=== PATIENT | male | born 1930 | race Caucasian/White ===

== ENCOUNTER 2016-06-24 01:34 | Emergency (ER) | payer MEDICARE, OTHER | END 2016-06-24 04:10 | disposition home or self-care (01) | DX: I48.2 Chronic atrial fibrillation (principal); I48.92 Unspecified atrial flutter; I49.3 Ventricular premature depolarization; Z79.01 Long term (current) use of anticoagulants; Z95.810 Presence of automatic (implantable) cardiac defibrillator; I10 Essential (primary) hypertension; J44.9 Chronic obstructive pulmonary disease, unspecified; Z86.73 Personal history of transient ischemic attack (TIA), and cerebral infarction without residual deficits; Z87.891 Personal history of nicotine dependence | CPT/HCPCS: 36415; 80048; 84443; 84484; 85025; 93005; 93010; 99283; 99285; G0480 ==

== ENCOUNTER 2016-06-27 13:00 | Outpatient (CLI) | payer MEDICARE, OTHER | END 2016-06-27 13:01 | disposition home or self-care (01) | DX: I35.0 Nonrheumatic aortic (valve) stenosis (principal); Z95.2 Presence of prosthetic heart valve; I48.2 Chronic atrial fibrillation; I34.0 Nonrheumatic mitral (valve) insufficiency; I07.1 Rheumatic tricuspid insufficiency ==

== ENCOUNTER 2016-10-08 11:17 | Outpatient (CLI) | payer MEDICARE, OTHER ==
[2016-10-08 13:07] LABS: BASOPHILS % (AUTO) 0.4 %; EOSINOPHILS # (AUTO) 0.1 10^3/uL (0.0-0.7); EOSINOPHILS % (AUTO) 2.1 %; HCT - HEMATOCRIT 33.4 % (42.0-52.0); HGB - HEMOGLOBIN 10.7 g/dL (14.0-18.0); LYMPHOCYTES # (AUTO) 0.6 10^3/uL (1.5-3.5); LYMPHOCYTES % (AUTO) 10.7 %; MEAN CORPUSCULAR HEMOGLOBIN 23.4 pg (27.0-31.0); MEAN CORPUSCULAR VOLUME 73.2 fL (80.0-94.0); MEAN PLATELET VOLUME 8.5 fL (7.4-11.4); MONOCYTES # (AUTO) 0.9 10^3/uL (0.0-1.0); MONOCYTES % (AUTO) 15.3 %; NEUTROPHILS # (AUTO) 4.2 10^3/uL (1.5-6.6); NEUTROPHILS % (AUTO) 71.5 %; NUCLEATED RED BLOOD CELLS AUTO 0.2 /100WBC; RED BLOOD COUNT 4.56 10^6/uL (4.70-6.10); RED CELL DISTRIBUTION WIDTH 20.1 % (12.0-15.0); UNCORRECTED WHITE BLOOD COUNT 5.9 x10^3/uL; WHITE BLOOD COUNT 5.9 x10^3/uL (4.8-10.8)
[2016-10-08 13:19] LABS: ALBUMIN/GLOBULIN RATIO 1.2 (1.0-2.2); BILIRUBIN,TOTAL 0.5 mg/dL (0.2-1.0); CALCIUM 9.7 mg/dL (8.5-10.3); CREATININE 1.3 mg/dL (0.6-1.2); POTASSIUM 3.8 mmol/L (3.5-5.0); TOTAL PROTEIN 6.6 g/dL (6.7-8.2)
== END 2016-10-08 11:18 | disposition home or self-care (01) ==
LOC: LAB 11:17
PROVIDERS: ATTEND Internal Medicine
DX: J44.1 Chronic obstructive pulmonary disease with (acute) exacerbation (principal); I50.9 Heart failure, unspecified
CPT/HCPCS: 36415; 80053; 83880; 85025

== ENCOUNTER 2016-10-11 14:06 | Outpatient (CLI) | payer MEDICARE, OTHER ==
[2016-10-11] MEDS ORDERED: ALBUTEROL NEB 2.5 MG/3 ML INH ONE (14:31)
== END 2016-10-11 14:07 | disposition home or self-care (01) ==
LOC: RT 14:06
PROVIDERS: ATTEND Internal Medicine
DX: J44.1 Chronic obstructive pulmonary disease with (acute) exacerbation (principal)
CPT/HCPCS: 94060; J7613

== ENCOUNTER 2016-10-16 13:27 | Emergency (ER) | payer MEDICARE, OTHER ==
--- NOTE | 2016-10-16 13:37 | ED Physician Documentation ---
PD HPI DYSPNEA - Stated complaint Stated Complaint: SOA - History obtained from History obtained from: Patient, Family () - History of Present Illness Timing - onset: How many months ago (2 months of dyspnea, worsening) Timing - onset during: Light activity (he is still able to walk around house, to bathroom, etc but gets winded with longer duration walking. No chest pain.) Timing - details: Gradual onset, Still present, Waxing and waning Inciting event(s): No: URI, Immobilization/travel Improved by: Rest, Sitting up Worsened by: Exertion, Laying flat, Coughing Associated symptoms: Cough. No: Fever, Wheezing, Chest pain / discomfort, Palpitations, Bilateral edema Similar symptoms before: No diagnosis Recently seen: Clinic (had labs done through Bed Placement Coordinator 10/08 which were okay. Seen in PMD yesterday and was ordered for CXR and labs tomorrow, but felt worse today. Is scheduling CT abd in [place] for next week, as he has had bloating and easy satiety. says Dr. Gregg wanted that to be in [place].) Review of Systems Constitutional: denies: Fever, Chills Nose: reports: Congestion. denies: Rhinorrhea / runny nose Throat: denies: Sore throat Cardiac: denies: Chest pain / pressure, Palpitations, Pedal edema, Calf pain Respiratory: reports: Dyspnea, Cough GI: reports: Vomiting. denies: Abdominal Pain, Nausea, Constipation, Diarrhea, Bloody / black stool : denies: Dysuria, Frequency Skin: denies: Rash, Lesions Neurologic: reports: Generalized weakness. denies: Focal weakness, Numbness, Altered mental status, Headache Psychiatric: denies: Insomnia Endocrine: reports: Easy bruising / bleeding. denies: Polyuria, Weight loss, Swollen lymph nodes Immunocompromised: denies: Immunocompromised PD PAST MEDICAL HISTORY - Past Medical History Cardiovascular: Hypertension, Atrial fibrillation, Valve disorder Respiratory: COPD, Shortness of breath Neuro: CVA GI: Other Psych: Anxiety Musculoskeletal: Osteoporosis - Past Surgical History General: Appendectomy, Bowel surgery Cardiovascular: Pacemaker HEENT: Tonsil/Adenoidectomy Derm: Skin cancer surgery - Present Medications Home Medications: Ambulatory Orders Medication Instructions Recorded Confirmed Apixaban [Eliquis] 5 mg PO BID 06/24/16 10/16/16 Carvedilol 6.25 mg ORAL BID 06/24/16 10/16/16 Colchicine [Colcrys] 0.6 mg ORAL DAILY 06/24/16 10/16/16 Diazepam 2 mg PO BID 06/24/16 10/16/16 Doxazosin [Cardura] 4 mg ORAL BID 06/24/16 10/16/16 Fluticasone [Flonase] 1 spray SATNAM BID 06/24/16 10/16/16 Fluticasone/Salmeterol 250/50 1 puffs INH BID 06/24/16 10/16/16 [Advair 250 Mcg/50 Mcg] Furosemide 40 mg PO DAILY 06/24/16 10/16/16 Omeprazole 20 mg ORAL DAILY 06/24/16 10/16/16 Pramipexole [Mirapex] 1 - 4 tab ORAL DAILY 06/24/16 10/16/16 Simvastatin 20 mg ORAL DAILY 06/24/16 10/16/16 Solifenacin Succinate [Vesicare] 5 mg ORAL DAILY 06/24/16 10/16/16 Vit A/Vit C/Vit E/Zinc/Copper 2 tab ORAL BID 06/24/16 10/16/16 [Preservision Areds Softgel] Zolpidem [Ambien] 5 mg PO HS 06/24/16 10/16/16 buPROPion [Wellbutrin Sr] 150 mg ORAL BID 06/24/16 10/16/16 Albuterol Sulfate [Proair Hfa 2 puffs IH QID #1 hfa.aer.ad 10/16/16 Inhaler] Dexamethasone [Decadron] 4 mg PO DAILY #5 tablet 10/16/16 Testosterone Cypionate 200 mg IM 10/16/16 - Allergies Allergies/Adverse Reactions: Allergies Allergy/AdvReac Type Severity Reaction Status Date / Time Iodinated Contrast- Oral and Allergy Mild Unknown Verified 06/24/16 01:47 IV Dye [Iodinated Contrast Media - IV Dye] Penicillins Allergy Mild Rash Verified 06/24/16 01:47 - Living Situation Living Situation: reports: With spouse/s.o. Living Arrangement: reports: At home - Social History Does the pt smoke?: No Smoking Status: Former smoker Does the pt drink ETOH?: Yes Does the pt have substance abuse?: No - Family History Family history: reports: Non contributory - Immunizations Immunizations are current?: No - POLST Patient has POLST: Yes PD ED PE NORMAL - Vitals Vital signs reviewed: Yes - General General: Alert and oriented X 3, Well developed/nourished, Other (somewhat frail looking. Mild short term recall deficit.) - HEENT HEENT: Moist mucous membranes, Pharynx benign - Neck Neck: Supple, no meningeal sign, No adenopathy - Cardiac Cardiac: RRR, No rub, Other (1/6 murmur left sternum without obvious radiation) - Respiratory Respiratory: No: Clear bilaterally (no fine crackles. Has some coarseness perihilar right. Also diffuse mild swheezing with deep brreath) - Abdomen Abdomen: Normal bowel sounds, Soft, Non tender, No organomegaly, Other (mild fullness without firmness; decreased bowel sounds.) - Back Back: No CVA TTP - Derm Derm: Normal color, Warm and dry - Extremities Extremities: No tenderness to palpate, Normal ROM s pain, No edema, No calf tenderness / cord - Neuro Neuro: Alert and oriented X 3, No motor deficit, Normal speech - Psych Psych: Normal mood, Normal affect Results - Vitals Vitals: Vital Signs - 24 hr 10/16/16 10/16/16 10/16/16 13:34 14:37 16:04 Temperature 36.8 C 36.6 C Heart Rate 64 53 L 53 L Respiratory 22 23 19 Rate Blood Pressure 92/65 92/42 L O2 Saturation 94 95 Oxygen O2 Source Room air - EKG (time done) 13:44 Rate: Rate (enter#) (49), Rodrigue Rhythm: Atrial flutter QRS: Normal Ischemia: No: ST elevation c/w ischemia, ST depression - Labs Labs: Laboratory Tests 10/16/16 10/16/16 10/16/16 13:50 13:50 13:50 WBC 9.0 RBC 4.63 L Hgb 10.8 L Hct 33.8 L MCV 72.9 L MCH 23.3 L MCHC 32.0 RDW 20.0 H Plt Count 166 MPV 8.3 Neut # 7.1 H Lymph # 0.5 L Powell # 1.3 H Eos # 0.1 Baso # 0.0 Absolute Nucleated RBC 0.01 Nucleated RBCs 0.1 Sodium 139 Potassium 3.4 L Chloride 99 L Carbon Dioxide 32 Anion Gap 8.0 BUN 46 H Creatinine 1.4 H Estimated GFR (MDRD) 48 L Glucose 139 H Calcium 9.3 Magnesium 2.0 Total Bilirubin 0.6 AST 26 ALT 20 Alkaline Phosphatase 35 L Troponin I 0.04 B-Natriuretic Peptide Total Protein 6.8 Albumin 4.0 Globulin 2.8 Albumin/Globulin Ratio 1.4 Lipase 29 10/16/16 13:50 WBC RBC Hgb Hct MCV MCH MCHC RDW Plt Count MPV Neut # Lymph # Powell # Eos # Baso # Absolute Nucleated RBC Nucleated RBCs Sodium Potassium Chloride Carbon Dioxide Anion Gap BUN Creatinine Estimated GFR (MDRD) Glucose Calcium Magnesium Total Bilirubin AST ALT Alkaline Phosphatase Troponin I B-Natriuretic Peptide 237 H Total Protein Albumin Globulin Albumin/Globulin Ratio Lipase - Rads (name of study) chest Radiology: Prelim report reviewed (some old scarring c/w chronic lung disease. mild interstitial fullness and bibasilar infiltrates. ) PD MEDICAL DECISION MAKING - ED course Complexity details: reviewed results, considered differential (has had dyspnea for couple of months, worse the past 2 weeks. Had some labs done on which were okay. Seen by PMD yesterday and was to get CXR and some repeat blood tests tomorrow. Feeling more dyspnea today. Also has had some abd bloating and fullness, and is scheduling for abd CT in [place] next week (pt and not sure why but Dr. Gregg wanted the CT from [place]). Did labs to exclude signficiant heart process. He did feel some improvement in breathing with neb treatment, so can treat as potential reactive airways with short course steroid and MDI. ), d/w patient, d/w family Departure - Departure Disposition: Home, Self Care Clinical Impression: Dyspnea Qualifiers: Dyspnea type: dyspnea on exertion Qualified Code(s): R06.09 - Other forms of dyspnea Atrial fibrillation Qualifiers: Atrial fibrillation type: chronic Qualified Code(s): I48.2 - Chronic atrial fibrillation Condition: Stable Record reviewed to determine appropriate education?: Yes Instructions: ED Dyspnea Shortness of Breath Follow-Up: Beau Gregg MD [Primary Care Provider] - Prescriptions: Dexamethasone [Decadron] 4 mg PO DAILY #5 tablet Albuterol Sulfate [Proair Hfa Inhaler] 2 puffs IH QID #1 hfa.aer.ad Comments: Follow up with your PMD. Get the CT scan of abdomen in [place] as planned. For now, for the dyspnea, can try 5 days of decadron steroid and an Albuterol inhaler 2 puffs 4 times daily for 1-2 weeks. See if breathing better with that. Discharge Date/Time: 10/16/16 16:39
[2016-10-16] MEDS ORDERED: IPRATROPIUM/ALBUTEROL 3 ML NEB INH STA (14:22)
[2016-10-16] MEDS ORDERED: IPRATROPIUM/ALBUTEROL 3 ML NEB INH ONE (14:28)
[2016-10-16 14:38] LABS: BASOPHILS % (AUTO) 0.2 %; EOSINOPHILS # (AUTO) 0.1 10^3/uL (0.0-0.7); EOSINOPHILS % (AUTO) 0.8 %; HCT - HEMATOCRIT 33.8 % (42.0-52.0); HGB - HEMOGLOBIN 10.8 g/dL (14.0-18.0); LYMPHOCYTES # (AUTO) 0.5 10^3/uL (1.5-3.5); LYMPHOCYTES % (AUTO) 5.5 %; MEAN CORPUSCULAR HEMOGLOBIN 23.3 pg (27.0-31.0); MEAN CORPUSCULAR VOLUME 72.9 fL (80.0-94.0); MEAN PLATELET VOLUME 8.3 fL (7.4-11.4); MONOCYTES # (AUTO) 1.3 10^3/uL (0.0-1.0); MONOCYTES % (AUTO) 14.5 %; NEUTROPHILS # (AUTO) 7.1 10^3/uL (1.5-6.6); NUCLEATED RED BLOOD CELLS AUTO 0.1 /100WBC; RED BLOOD COUNT 4.63 10^6/uL (4.70-6.10)
[2016-10-16 14:45] LABS: ALBUMIN/GLOBULIN RATIO 1.4 (1.0-2.2); BILIRUBIN,TOTAL 0.6 mg/dL (0.2-1.0); CALCIUM 9.3 mg/dL (8.5-10.3); CREATININE 1.4 mg/dL (0.6-1.2); POTASSIUM 3.4 mmol/L (3.5-5.0); TOTAL PROTEIN 6.8 g/dL (6.7-8.2)
--- NOTE | 2016-10-16 15:07 | XRAY Preliminary Report ---
Exam: XR Chest 2 View PA/LAT IMPRESSION: 1. Mild cardiomegaly with new mild CHF. 2. Patchy bibasilar infiltrates. 3. Pacer. [facility] SITE ID: [id number]
--- NOTE | 2016-10-16 15:14 | XRAY Report ---
EXAM: CHEST RADIOGRAPHY EXAM DATE: 10/16/2016 02:45 p.m. CLINICAL HISTORY: Dyspnea for a few weeks, worsening. COMPARISON: 03/29/2016. TECHNIQUE: 2 views. FINDINGS: Lungs/Pleura: New mild vascular congestion. Increasing patchy bibasilar interstitial infiltrates. No effusion or pneumothorax. Normal lung volumes. Mediastinum: Stable mild cardiomegaly. Stable dual lead left subclavian pacer. Other: Chronic bilateral rotator cuff tears. IMPRESSION: 1. Mild cardiomegaly with new mild CHF. 2. Patchy bibasilar infiltrates. 3. Pacer. [facility] Referring Provider Line: [phone] SITE ID: [id number]
[2016-10-16 16:05] VITALS: BP 92/42
== END 2016-10-16 16:39 | disposition home or self-care (01) ==
LOC: ED 13:27
DX: J44.9 Chronic obstructive pulmonary disease, unspecified (principal); R14.0 Abdominal distension (gaseous); I48.92 Unspecified atrial flutter; I48.2 Chronic atrial fibrillation; Z95.0 Presence of cardiac pacemaker; I10 Essential (primary) hypertension; Z86.73 Personal history of transient ischemic attack (TIA), and cerebral infarction without residual deficits; Z85.828 Personal history of other malignant neoplasm of skin; Z79.01 Long term (current) use of anticoagulants; Z87.891 Personal history of nicotine dependence
CPT/HCPCS: 36415; 71020; 80053; 83690; 83735; 83880; 84484; 85025; 93005; 94640; 99283; 99284; J7620

== ENCOUNTER 2016-10-17 13:04 | Outpatient (CLI) | payer MEDICARE, OTHER | END 2016-10-17 13:05 | disposition home or self-care (01) | LOC: RT 13:04 | PROVIDERS: ATTEND Internal Medicine | DX: R94.2 Abnormal results of pulmonary function studies (principal) | CPT/HCPCS: 94729 ==

== ENCOUNTER 2016-11-28 10:41 | Outpatient (CLI) | payer MEDICARE, OTHER ==
[2016-11-28 11:17] LABS: CALCIUM 9.5 mg/dL (8.5-10.3); CREATININE 1.3 mg/dL (0.6-1.2); POTASSIUM 3.8 mmol/L (3.5-5.0)
== END 2016-11-28 10:42 | disposition home or self-care (01) ==
LOC: LAB 10:41
PROVIDERS: ATTEND Internal Medicine
DX: I50.9 Heart failure, unspecified (principal)
CPT/HCPCS: 36415; 80048

== ENCOUNTER 2017-04-21 14:29 | Emergency (ER) | payer MEDICARE, OTHER ==
[2017-04-21 14:39] VITALS: BP 146/76
--- NOTE | 2017-04-21 15:14 | ED Physician Documentation ---
History of Present Illness - Stated complaint Stated Complaint: REMOVE STITCHES - Chief complaint Chief Complaint: Laceration - Additonal information Additional information: hx from pt few wk s/p skin cancer removal by plastic surgery needs sutures removed had an appt at the clinic but then the clinic was too busy so he was advised to come to the ER no fever redness etc Review of Systems Constitutional: denies: Fever Skin: reports: Laceration (s) PD PAST MEDICAL HISTORY - Past Medical History Past Medical History: Yes Cardiovascular: Hypertension, Atrial fibrillation, Valve disorder Respiratory: COPD, Shortness of breath Neuro: CVA GI: Other Psych: Anxiety Musculoskeletal: Osteoporosis - Past Surgical History Past Surgical History: Yes General: Appendectomy, Bowel surgery Cardiovascular: Pacemaker HEENT: Tonsil/Adenoidectomy Derm: Skin cancer surgery - Present Medications Home Medications: Ambulatory Orders Medication Instructions Recorded Confirmed Apixaban [Eliquis] 5 mg PO BID 06/24/16 10/16/16 Carvedilol 6.25 mg ORAL BID 06/24/16 10/16/16 Colchicine [Colcrys] 0.6 mg ORAL DAILY 06/24/16 10/16/16 Diazepam 2 mg PO BID 06/24/16 10/16/16 Doxazosin [Cardura] 4 mg ORAL BID 06/24/16 10/16/16 Fluticasone [Flonase] 1 spray SATNAM BID 06/24/16 10/16/16 Fluticasone/Salmeterol 250/50 1 puffs INH BID 06/24/16 10/16/16 [Advair 250 Mcg/50 Mcg] Furosemide 40 mg PO DAILY 06/24/16 10/16/16 Omeprazole 20 mg ORAL DAILY 06/24/16 10/16/16 Pramipexole [Mirapex] 1 - 4 tab ORAL DAILY 06/24/16 10/16/16 Simvastatin 20 mg ORAL DAILY 06/24/16 10/16/16 Solifenacin Succinate [Vesicare] 5 mg ORAL DAILY 06/24/16 10/16/16 Vit A/Vit C/Vit E/Zinc/Copper 2 tab ORAL BID 06/24/16 10/16/16 [Preservision Areds Softgel] Zolpidem [Ambien] 5 mg PO HS 06/24/16 10/16/16 buPROPion [Wellbutrin Sr] 150 mg ORAL BID 06/24/16 10/16/16 Albuterol Sulfate [Proair Hfa 2 puffs IH QID #1 hfa.aer.ad 10/16/16 Inhaler] Dexamethasone [Decadron] 4 mg PO DAILY #5 tablet 10/16/16 Testosterone Cypionate 200 mg IM 10/16/16 - Allergies Allergies/Adverse Reactions: Allergies Allergy/AdvReac Type Severity Reaction Status Date / Time Iodinated Contrast- Oral and Allergy Mild Unknown Verified 04/21/17 14:39 IV Dye [Iodinated Contrast Media - IV Dye] Penicillins Allergy Mild Rash Verified 04/21/17 14:39 - Social History Does the pt smoke?: No Smoking Status: Never smoker Does the pt drink ETOH?: Yes Does the pt have substance abuse?: No - Immunizations Immunizations are current?: No - POLST Patient has POLST: Yes PD ED PE NORMAL - Vitals Vital signs reviewed: Yes - HEENT HEENT: Other (large well healed L shaped incision to L forehead repaired with running 6-0) Results - Vitals Vitals: Vital Signs - 24 hr 04/21/17 14:36 Temperature 36.7 C Heart Rate 94 Respiratory 16 Rate Blood Pressure 146/76 H O2 Saturation 100 Oxygen O2 Source Room air PD MEDICAL DECISION MAKING - ED course ED course: sutures removed s difficulty, pt tolerated well Departure - Departure Disposition: 01 Home, Self Care Clinical Impression: Visit for suture removal Condition: Good Instructions: ED Wound Check Sutr Remove No Infec Comments: The wound has healed very nicely At this point just wash your face and apply an over the counter antibiotic ointment once a day
== END 2017-04-21 15:15 | disposition home or self-care (01) ==
LOC: ED 14:29
DX: Z48.02 Encounter for removal of sutures (principal); Z98.890 Other specified postprocedural states; Z85.828 Personal history of other malignant neoplasm of skin; I10 Essential (primary) hypertension; I48.91 Unspecified atrial fibrillation; Z79.01 Long term (current) use of anticoagulants; Z86.73 Personal history of transient ischemic attack (TIA), and cerebral infarction without residual deficits
CPT/HCPCS: 99281; 99283

== ENCOUNTER 2017-06-16 14:24 | Outpatient (CLI) | payer MEDICARE, OTHER ==
[2017-06-16 15:01] LABS: BASOPHILS % (AUTO) 0.7 %; EOSINOPHILS # (AUTO) 0.1 10^3/uL (0.0-0.7); EOSINOPHILS % (AUTO) 1.5 %; HGB - HEMOGLOBIN 13.7 g/dL (14.0-18.0); LYMPHOCYTES # (AUTO) 0.8 10^3/uL (1.5-3.5); LYMPHOCYTES % (AUTO) 11.8 %; MEAN CORPUSCULAR HEMOGLOBIN 24.2 pg (27.0-31.0); MEAN CORPUSCULAR HGB CONC 32.1 g/dL (32.0-36.0); MEAN CORPUSCULAR VOLUME 75.6 fL (80.0-94.0); MEAN PLATELET VOLUME 8.1 fL (7.4-11.4); MONOCYTES # (AUTO) 0.9 10^3/uL (0.0-1.0); MONOCYTES % (AUTO) 13.9 %; NEUTROPHILS # (AUTO) 4.9 10^3/uL (1.5-6.6); NEUTROPHILS % (AUTO) 72.1 %; PLT - PLATELET COUNT 162 10^3/uL (130-450); RED BLOOD COUNT 5.66 10^6/uL (4.70-6.10); RED CELL DISTRIBUTION WIDTH 22.3 % (12.0-15.0); WHITE BLOOD COUNT 6.8 x10^3/uL (4.8-10.8)
[2017-06-16 15:09] LABS: ALBUMIN 3.9 g/dL (3.2-5.5); ALBUMIN/GLOBULIN RATIO 1.5 (1.0-2.2); BILIRUBIN,TOTAL 0.3 mg/dL (0.2-1.0); CREATININE 1.2 mg/dL (0.6-1.2); TOTAL PROTEIN 6.5 g/dL (6.7-8.2)
[2017-06-16 17:19] LABS: PLATELET ESTIMATE, MANUAL NORMAL (130-450,000) (NORMAL); PLATELET MORPHOLOGY NORMAL APPEARANCE (NORMAL)
== END 2017-06-16 14:25 | disposition home or self-care (01) ==
LOC: LAB 14:24
PROVIDERS: ATTEND Specialist
DX: I48.91 Unspecified atrial fibrillation (principal); I50.9 Heart failure, unspecified; R53.83 Other fatigue
CPT/HCPCS: 36415; 80053; 83880; 85025

== ENCOUNTER 2017-07-09 16:12 | Emergency (ER) | payer MEDICARE, OTHER ==
--- NOTE | 2017-07-09 17:04 | ED Physician Documentation ---
PD HPI WOUND RECHECK - Stated complaint Stated Complaint: STITCH REMOVAL - Chief complaint Chief Complaint: Wound - Histroy obtained from History obtained from: Patient - History of Present Illness Location: Scalp (behind left ear) Associated symptoms: No: Fever, Redness, Drainage Similar symptoms before: No diagnosis Recently seen: Clinic Review of Systems Constitutional: denies: Fever, Chills Nose: denies: Rhinorrhea / runny nose, Congestion Throat: denies: Sore throat Respiratory: denies: Cough PD PAST MEDICAL HISTORY - Past Medical History Past Medical History: Yes Cardiovascular: Hypertension, Atrial fibrillation, Valve disorder Respiratory: COPD, Shortness of breath Neuro: CVA GI: Other Psych: Anxiety Musculoskeletal: Osteoporosis - Past Surgical History Past Surgical History: Yes General: Appendectomy, Bowel surgery Cardiovascular: Pacemaker HEENT: Tonsil/Adenoidectomy Derm: Skin cancer surgery - Present Medications Home Medications: Ambulatory Orders Medication Instructions Recorded Confirmed Apixaban [Eliquis] 5 mg PO BID 06/24/16 10/16/16 Carvedilol 6.25 mg ORAL BID 06/24/16 10/16/16 Colchicine [Colcrys] 0.6 mg ORAL DAILY 06/24/16 10/16/16 Diazepam 2 mg PO BID 06/24/16 10/16/16 Doxazosin [Cardura] 4 mg ORAL BID 06/24/16 10/16/16 Fluticasone [Flonase] 1 spray SATNAM BID 06/24/16 10/16/16 Fluticasone/Salmeterol 250/50 1 puffs INH BID 06/24/16 10/16/16 [Advair 250 Mcg/50 Mcg] Furosemide 40 mg PO DAILY 06/24/16 10/16/16 Omeprazole 20 mg ORAL DAILY 06/24/16 10/16/16 Pramipexole [Mirapex] 1 - 4 tab ORAL DAILY 06/24/16 10/16/16 Simvastatin 20 mg ORAL DAILY 06/24/16 10/16/16 Solifenacin Succinate [Vesicare] 5 mg ORAL DAILY 06/24/16 10/16/16 Vit A/Vit C/Vit E/Zinc/Copper 2 tab ORAL BID 06/24/16 10/16/16 [Preservision Areds Softgel] Zolpidem [Ambien] 5 mg PO HS 06/24/16 10/16/16 buPROPion [Wellbutrin Sr] 150 mg ORAL BID 06/24/16 10/16/16 Albuterol Sulfate [Proair Hfa 2 puffs IH QID #1 hfa.aer.ad 10/16/16 Inhaler] Dexamethasone [Decadron] 4 mg PO DAILY #5 tablet 10/16/16 Testosterone Cypionate 200 mg IM 10/16/16 - Allergies Allergies/Adverse Reactions: Allergies Allergy/AdvReac Type Severity Reaction Status Date / Time Iodinated Contrast- Oral and Allergy Mild Unknown Verified 04/21/17 14:39 IV Dye [Iodinated Contrast Media - IV Dye] Penicillins Allergy Mild Rash Verified 04/21/17 14:39 - Social History Does the pt smoke?: No Smoking Status: Never smoker Does the pt drink ETOH?: Yes Does the pt have substance abuse?: No - Immunizations Immunizations are current?: No - POLST Patient has POLST: Yes PD ED PE NORMAL - Vitals Vital signs reviewed: Yes - General General: Alert and oriented X 3, Well developed/nourished - HEENT HEENT: Other (left postauricular area with healiing laceration. no signs of infection. ) Results - Vitals Vitals: Oxygen O2 Source Room air PD MEDICAL DECISION MAKING - ED course Complexity details: re-evaluated patient (took out the sutures myself without any problems. No signs of infection. Slight bleeding after suture removal in one spot.), considered differential, d/w patient Departure - Departure Disposition: 01 Home, Self Care Clinical Impression: Encounter for removal of sutures Record reviewed to determine appropriate education?: Yes Instructions: ED Wound Check Sutr Remove No Infec Comments: Regular wound care with keeping it dry tonight but okay to shower tomorrow and then apply some antibiotic ointment once or twice daily once the Steri-Strips fall off. Recheck if signs of infection but it looks like it is healing well at this point. Discharge Date/Time: 07/09/17 17:20
== END 2017-07-09 17:20 | disposition home or self-care (01) ==
LOC: ED 16:12
DX: S01.302D Unspecified open wound of left ear, subsequent encounter (principal); X58.XXXD Exposure to other specified factors, subsequent encounter; I10 Essential (primary) hypertension; I48.91 Unspecified atrial fibrillation; Z86.73 Personal history of transient ischemic attack (TIA), and cerebral infarction without residual deficits; Z95.0 Presence of cardiac pacemaker; Z79.01 Long term (current) use of anticoagulants
CPT/HCPCS: 99282